=== PATIENT | male | born 1950 | race Caucasian/White ===

== ENCOUNTER 2023-08-04 09:26 | Outpatient (CLI) | payer MEDICARE ==
[2023-08-04] MEDS ORDERED: Iopamidol-370 76% 500 ML MDV (1 ML CHARGE) ONE (15:08)
== END 2023-08-04 09:27 | disposition home or self-care (01) ==
LOC: BICCT 09:26
PROVIDERS: ATTEND Urology
DX: C61 Malignant neoplasm of prostate (principal); Z90.79 Acquired absence of other genital organ(s); J98.4 Other disorders of lung
CPT/HCPCS: 74178; 82565; Q9967

== ENCOUNTER 2024-04-04 12:30 | Outpatient (CLI) | payer MEDICARE | END 2024-04-04 12:31 | disposition home or self-care (01) | LOC: PET 12:30 | PROVIDERS: ATTEND Urology | DX: C61 Malignant neoplasm of prostate (principal); C77.5 Secondary and unspecified malignant neoplasm of intrapelvic lymph nodes | CPT/HCPCS: 78815; A9552; A9595 ==

== ENCOUNTER 2024-10-23 18:59 | Emergency (ER) | payer MEDICARE ==
[2024-10-23] MEDS ORDERED: Glucagon 1 MG/ML KIT ONE (19:20)
[2024-10-23] MEDS ORDERED: Promethazine HCl 25 MG/ML VIAL ONE (19:20)
[2024-10-23] MEDS ORDERED: Pantoprazole 40 MG VIAL ONE (19:45)
[2024-10-23] MEDS ORDERED: Famotidine/PF 20 mg/2ml Vial ONE (19:45)
[2024-10-23 19:48] LABS: #Basophils Less than 0.03 10x3/uL (0.0-0.2); %Basophils 0.3 % (0.0-1.0); %Eosinophils 2.8 % (0.0-10.0); %Lymphocytes 15.2 % (21.0-51.0); %Monocytes 12.1 % (0.0-10.0); %Neutrophils 69.3 % (42.0-75.0); Hematocrit 37.1 % (42.0-52.0); Hemoglobin 13.3 g/dL (14.0-18.0); Mean Corpuscular HGB CONC 35.8 g/dL (32.0-36.0); Mean Corpuscular Hemoglobin 32.8 pg (27.0-31.0); Mean Corpuscular Volume 91.6 fL (78.0-98.0); Mean Platelet Volume 9.7 fL (7.4-10.4); Platelet Count 157 10x3/uL (130-400); Red Blood Cell (RBC) Count 4.05 mill/uL (4.70-6.10)
[2024-10-23 20:19] LABS: Troponin I Less than 0.010 ng/mL (< 0.028)
[2024-10-23 20:21] LABS: ALT (SGPT) 36 U/L (Less than 45); AST (SGOT) 26 U/L (11-34); Albumin 4.2 g/dL (3.1-4.5); Alkaline Phosphatase 78 U/L (40-110); Anion Gap 14 mmol/L (10-20); BUN (Urea Nitrogen) 21 mg/dL (8.4-25.7); Bilirubin, Total 0.3 mg/dL (0.3-1.2); Calc. Creatinine Clearance 0 mL/min (70-130); Calcium 9.3 mg/dL (7.8-10.44); Carbon Dioxide 22 mmol/L (23-31); Chloride 108 mmol/L (98-107); Estimated GFR 72; Globulin 2.9 g/dL (2.4-3.5); Glucose 145 mg/dL (83-110); Potassium 3.4 mmol/L (3.5-5.1); Protein, Total 7.1 g/dL (5.8-8.1); Sodium 141 mmol/L (136-145)
== END 2024-10-23 22:20 | disposition home or self-care (01) ==
LOC: ERS 18:59
DX: R11.2 Nausea with vomiting, unspecified (principal); I10 Essential (primary) hypertension; Z79.899 Other long term (current) drug therapy
CPT/HCPCS: 71046; 80053; 84484; 85025; 93005; J2470; J2550; J3490; 96374; 96375; J1611